=== PATIENT | male | born 1975 | race Caucasian/White ===

== ENCOUNTER → 2017-07-17 | Outpatient (CLI) | payer OTHER ==
[~2017-07-17] VITALS: Ht 177.8 cm; Wt 103.4 kg
[~2017-07-17] MED LIST: ASCORBIC ACID100 MG PO; B/P PILL PO; ERGOCALCIF50000 UNIT PO; HYDROCHLOROTH12.5 M3 PO
== END | disposition home or self-care (01) ==
LOC: AMB 07:00
PROC: 0DJD8ZZ Inspection of Lower Intestinal Tract, Via Natural or Artificial Opening Endoscopic (ICD-10-PCS; principal; 2017-07-17)
DX: K57.30 Diverticulosis of large intestine without perforation or abscess without bleeding (principal); K62.89 Other specified diseases of anus and rectum; I10 Essential (primary) hypertension; E55.9 Vitamin D deficiency, unspecified; Z80.41 Family history of malignant neoplasm of ovary; Z82.49 Family history of ischemic heart disease and other diseases of the circulatory system; Z83.3 Family history of diabetes mellitus; Z88.8 Allergy status to other drugs, medicaments and biological substances
CPT/HCPCS: 93005; J2250; J3010